=== PATIENT | male | born 1990 | race Hispanic/Latino ===

== ENCOUNTER 2019-08-21 08:49 | Observation (INO) | payer OTHER ==
[2019-08-21 09:11] LABS: BASOPHILS % (AUTO) 0.6 % (0.0-5.0); EOSINOPHILS % (AUTO) 4.1 % (0.0-8.0); HEMATOCRIT 43.9 % (42-54); LYMPHOCYTES % (AUTO) 21.2 % (21.0-51.0); MEAN CORPUSCULAR HEMOGLOBIN 24.4 pg (27.0-33.0); MEAN CORPUSCULAR HGB CONC 30.8 g/dL (32.0-36.0); MEAN CORPUSCULAR VOLUME 79.2 fL (79-99); MONOCYTES % (AUTO) 7.4 % (3.0-13.0); NEUTROPHILS % (AUTO) 66.3 % (40.0-77.0); RED BLOOD CELL COUNT(AUTO) 5.54 MIL/uL (4.50-6.20); WHITE BLOOD COUNT (AUTO) 15.7 K/uL (4.8-10.8)
[2019-08-21 09:14] LABS: PLATELET COUNT (AUTO) 751 K/uL (130-400)
[2019-08-21 09:20] LABS: CREATININE 0.9 mg/dL (0.5-1.5); POTASSIUM 4.3 mmol/L (3.5-5.1)
[2019-08-21 09:24] LABS: BILIRUBIN,TOTAL 0.3 mg/dL (0.2-1.0); INR 0.97 (0.85-1.15); PARTIAL THROMBOPLASTIN TIME 26.8 SEC (26.3-35.5); PROTHROMBIN TIME 10.2 SEC (9.6-11.6); TOTAL PROTEIN, SERUM 8.6 g/dL (6.0-8.3)
[2019-08-21] MEDS ORDERED: ASPIRIN 325 MG TABLET ONE (09:28)
[2019-08-21] MEDS ORDERED: NITROGLYCERIN 1GM/1 INCH PACKET TD ONE (09:28)
[2019-08-21 10:07] LABS: PLATELET MORPHOLOGY COMMENT MARKED INCREASE
[2019-08-21 11:22] LABS: AMPHET/METH SCREEN,URINE NEGATIVE (NEGATIVE); APPEARANCE,URINE Clear (CLEAR); BARBITURATE SCREEN, URINE NEGATIVE (NEGATIVE); BENZODIAZEPINES SCREEN,URINE NEGATIVE (NEGATIVE); BILIRUBIN,URINE Negative (NEGATIVE); CANNABINOID SCREEN,URINE NEGATIVE (NEGATIVE); COCAINE SCREEN,URINE NEGATIVE (NEGATIVE); COLOR,URINE Yellow (YELLOW); GLUCOSE, URINE (UA) Negative (NEGATIVE); KETONES,URINE Negative (NEGATIVE); LEUKOCYTE ESTERASE ,URINE Negative (NEGATIVE); NITRATE,URINE Negative (NEGATIVE); OCCULT BLOOD,URINE Negative (NEGATIVE); OPIATE SCREEN,URINE NEGATIVE (NEGATIVE); PH,URINE 5.5 (5.0-8.0); PHENCYCLIDINE SCREEN,URINE NEGATIVE (NEGATIVE); PROTEIN,URINE Negative (NEGATIVE)
[2019-08-21] MEDS ORDERED: METOPROLOL TARTRATE 1 MG/ML 5ML VIAL IV ONE (12:26)
[2019-08-21] MEDS ORDERED: SODIUM CHLORIDE 0.9% 1000ML 1,000 ML IV SCH (13:16)
[2019-08-21] MEDS ORDERED: NITROGLYCERIN 0.4 MG SL TAB SL PRN (13:30)
[2019-08-21] MEDS ORDERED: HYDRALAZINE HCL 20 MG/ML VIAL IV PRN (13:30)
[2019-08-21] MEDS ORDERED: ONDANSETRON HCL 4 MG/2 ML VIAL IV PRN (13:30)
[2019-08-21] MEDS ORDERED: MORPHINE SULFATE 2 MG/ML 1ML SYG IV PRN (13:30)
[2019-08-21] MEDS ORDERED: ACETAMINOPHEN 325 MG TAB PO PRN ×2 (13:30)
[2019-08-21] MEDS ORDERED: DOXYCYCLINE 100MG+NS 250ML 250 ML IV SCH (13:30)
[2019-08-21 14:26] LABS: HEMOGLOBIN A1C 9.4 % (4.0-6.0)
[2019-08-21] MEDS ORDERED: DOXYCYCLINE 100MG+NS 250ML 250 ML IV ONE (15:35)
[2019-08-21] MEDS ORDERED: SODIUM CHLORIDE 0.9% 1000ML 1,000 ML IV ONE (15:36)
[2019-08-21 16:07] LABS: CREATINE KINASE, TOTAL 123 U/L (21-232); MYOGLOBIN 58 ng/mL (10-92); TROPONIN I < 0.04 ng/mL (0.00-0.06)
[2019-08-21] MEDS ORDERED: NITROGLYCERIN 0.4 MG SL TAB SL ONE (19:28)
[2019-08-21 20:05] VITALS: BP 114/55
[2019-08-21] MEDS ORDERED: FAMOTIDINE/PF 20 MG/2 ML VIAL IV SCH (21:00)
[2019-08-21] MEDS ORDERED: METOPROLOL TARTRATE 25 MG TAB PO SCH (21:00)
[2019-08-21 21:24] LABS: CREATINE KINASE, TOTAL 119 U/L (21-232); MYOGLOBIN 64 ng/mL (10-92); TROPONIN I < 0.04 ng/mL (0.00-0.06)
[2019-08-22] MEDS ORDERED: DOXYCYCLINE 100MG+NS 250ML 250 ML IV ONE (03:55)
[2019-08-22 07:13] LABS: HEPATITIS A ANTIBODY IGM Negative (Negative); HEPATITIS B CORE IGM Negative (Negative); HEPATITIS Bs ANTIGEN SCREEN P Negative (Negative)
[2019-08-22] MEDS ORDERED: ENOXAPARIN SODIUM 30 MG/0.3 ML SQ ONE (08:23)
[2019-08-22] MEDS ORDERED: ASPIRIN 325 MG TABLET ONE (08:23)
[2019-08-22] MEDS ORDERED: ATORVASTATIN CALCIUM 20 MG TABLET ONE (08:23)
[2019-08-22] MEDS ORDERED: METOPROLOL TARTRATE 25 MG TAB ONE (08:23)
[2019-08-22] MEDS ORDERED: FAMOTIDINE/PF 20 MG/2 ML VIAL IV ONE (08:24)
[2019-08-22] MEDS ORDERED: ATORVASTATIN CALCIUM 20 MG TABLET PO SCH (09:00)
[2019-08-22] MEDS ORDERED: ASPIRIN 325 MG TABLET PO SCH (09:00)
[2019-08-22] MEDS ORDERED: ENOXAPARIN SODIUM 30 MG/0.3 ML SQ SCH (09:00)
--- NOTE | 2019-08-22 09:48 | NUR ---
DCP: HOME met with pt who lives in [facility] with his girlfriend Chiquis Santamaria [phone]. Pt reports he works at [employer], is independent of all ADLS, drives self, has no HH or DME. Pt states he has no PCP and takes no daily medications. Pt denies dc needs and states he will return home at dc
[2019-08-22 09:59] LABS: BASOPHILS % (AUTO) 0.4 % (0.0-5.0); EOSINOPHILS % (AUTO) 2.6 % (0.0-8.0); LYMPHOCYTES % (AUTO) 24.4 % (21.0-51.0); MEAN CORPUSCULAR HEMOGLOBIN 24.7 pg (27.0-33.0); MEAN CORPUSCULAR HGB CONC 31.2 g/dL (32.0-36.0); MEAN CORPUSCULAR VOLUME 79.1 fL (79-99); MONOCYTES % (AUTO) 6.9 % (3.0-13.0); NEUTROPHILS % (AUTO) 65.3 % (40.0-77.0); RED BLOOD CELL COUNT(AUTO) 5.31 MIL/uL (4.50-6.20); RED CELL DISTRIBUTION WIDTH 17.3 % (11.0-15.5); WHITE BLOOD COUNT (AUTO) 18.2 K/uL (4.8-10.8)
[2019-08-22 10:13] LABS: PLATELET COUNT (AUTO) 708 K/uL (130-400)
[2019-08-22 10:18] LABS: BILIRUBIN,TOTAL 0.4 mg/dL (0.2-1.0); CREATININE 0.8 mg/dL (0.5-1.5); MAGNESIUM 1.9 mg/dL (1.80-2.40); PHOSPHORUS 3.6 mg/dL (2.5-4.9); POTASSIUM 3.8 mmol/L (3.5-5.1); TOTAL PROTEIN, SERUM 8.5 g/dL (6.0-8.3)
[2019-08-22] MEDS ORDERED: ATOR20TA65 PO (10:28)
[2019-08-22] MEDS ORDERED: ASPI-1005 PO (10:28)
[2019-08-22] MEDS ORDERED: METF-444 PO (10:28)
[2019-08-22] MEDS ORDERED: METO25 PO (10:28)
[2019-08-22] MEDS ORDERED: LISI-617 PO (10:28)
--- NOTE | 2019-08-22 11:06 | NUR ---
NUTRITION EDUCATION COMPLETED PATIENT DID NOT KNOW HE WAS DIABETIC, AND IS SOMEWHAT FAMILIAR WITH FOODS TO AVOID/ RECOMMENDED DUE TO HAVING FAMILY MEMBERS WHO ARE DIABETIC. RD PROVIDED DIABETES (CARBOHYDRATE COUNTING), HEART HEALTHY AND LOW SODIUM MEDICAL NUTRITION THERAPY. INCREASING PHYSICAL ACTIVITY TO REACH A DESIRABLE BODY WEIGHT WAS ALSO ENCOURAGED. PT AND HIS SIGNIFICANT OTHER ASKED QUESTIONS, RD ANSWERED AND THE COUPLE VERBALIZED UNDERSTANDING. NUTRITION EDUCATION HANDOUTS WERE PROVIDED. Addendum: 08/22/19 at [address] Amended: Links added.
[2019-08-22] MEDS ORDERED: INSULIN HUMULIN R 100 UNIT/ML 3ML SQ SCH (11:30)
[2019-08-22] MEDS ORDERED: METFORMIN HCL 500 MG TABLET PO SCH (12:00)
[2019-08-22] MEDS ORDERED: METOPROLOL TARTRATE 25 MG TAB PO SCH (21:00)
[2019-08-23] MEDS ORDERED: ASPIRIN 81MG TAB.CHEW PO SCH (09:00)
[2019-08-23 15:12] LABS: ROCKY MT SPOTTED FEVER IGG <1:64 (Neg:<1:64); TYPHUS FEVER AB IGG <1:64 (Neg:<1:64)
== END 2019-08-22 11:25 | disposition home or self-care (01) ==
LOC: EDH 08:49 → EDHIP 13:16
PROVIDERS: ADMIT Internal Medicine; ATTEND Internal Medicine
DX: R07.89 Other chest pain (principal); I10 Essential (primary) hypertension; R00.0 Tachycardia, unspecified; D69.6 Thrombocytopenia, unspecified; R74.8 Abnormal levels of other serum enzymes; E11.65 Type 2 diabetes mellitus with hyperglycemia; E87.2 Acidosis; E66.01 Morbid (severe) obesity due to excess calories; K76.0 Fatty (change of) liver, not elsewhere classified; R16.0 Hepatomegaly, not elsewhere classified; I20.0 Unstable angina; Z90.81 Acquired absence of spleen; Z79.84 Long term (current) use of oral hypoglycemic drugs; Z79.899 Other long term (current) drug therapy; Z88.0 Allergy status to penicillin; Z88.5 Allergy status to narcotic agent; Z88.2 Allergy status to sulfonamides; Z88.8 Allergy status to other drugs, medicaments and biological substances
CPT/HCPCS: 36415 ×2; 71045; 76705; 80053 ×2; 80061; 80074; 80305; 81003; 82550 ×3; 83036; 83735; 83874 ×2; 84100; 84145; 84484 ×4; 85025 ×2; 85610; 85730; 86038; 86757; 87804 ×2; 93005 ×3; 99285; G0378 ×21; J1650; J3490 ×4; J7030